=== PATIENT | male | born 1985 ===

== ENCOUNTER 2023-09-04 10:54 | Day surgery (SDC) | payer BC ==
[~2023-09-04 10:54] MED LIST: Bupivacaine 0.25% HCL 30 ML VIAL ONE; EPINEPHrine 1 MG/ML VIAL ONE
[2023-09-04] MEDS ORDERED: Sodium Chloride 0.9% 100 ML ONE (11:25)
[2023-09-04] MEDS ORDERED: cefOXitin 2 GM VIAL ONE (11:25)
[2023-09-04] MEDS ORDERED: Midazolam HCl 2 mg/2 ml Vial ONE (11:26)
[2023-09-04] MEDS ORDERED: PROPOFOL 20 ML ONE (11:27)
[2023-09-04] MEDS ORDERED: fentaNYL PF 100 MCG/2 ML SYRINGE ONE (11:27)
[2023-09-04] MEDS ORDERED: Lidocaine 1% PF 5 ML VIAL ONE (11:28)
[2023-09-04] MEDS ORDERED: Rocuronium Bromide 10 MG/ML (10ML VIAL) ONE (11:28)
[2023-09-04] MEDS ORDERED: Dexamethasone 4 mg/ml Vial ONE (11:28)
[2023-09-04] MEDS ORDERED: Ondansetron PF 4 MG/2 ML Vial ONE (11:28)
[2023-09-04] MEDS ORDERED: SUGAMMADEX SODIUM 200 MG/2 ML VIAL ONE (11:28)
[2023-09-04] MEDS ORDERED: HYDROmorphone 0.5 MG/0.5 ML SYRINGE ONE (11:31)
[2023-09-04] MEDS ORDERED: fentaNYL 50 mcg/mL 1 mL Vial ONE (13:01)
[2023-09-04] MEDS ORDERED: HYDROcodone/Acetaminophen 5/325 mg Tablet ONE (13:45)
== END 2023-09-04 14:30 | disposition home or self-care (01) ==
LOC: SDC 10:54
PROVIDERS: ATTEND Surgery
PROC: 0DTJ4ZZ Resection of Appendix, Percutaneous Endoscopic Approach (ICD-10-PCS; principal; 2023-09-04)
DX: C18.1 Malignant neoplasm of appendix (principal); K35.80 Unspecified acute appendicitis
CPT/HCPCS: 88304; A4314; A4649; C1776; J0171; J0665; J0694; J1100; J1170; J2250; J2405; J2704; J3010; J3490